=== PATIENT | female | born 1975 | race Caucasian/White ===

== ENCOUNTER 2020-03-31 20:58 | Inpatient (IN) | payer BC ==
[~2020-03-31 20:58] MED LIST: Iopamidol-370 76% 500 ML 1 ML ONE
[2020-03-31] MEDS ORDERED: Albuterol Sulfate 2.5 mg/0.5 ml Neb ONE (21:48)
[2020-03-31] MEDS ORDERED: Albuterol Sulfate 2.5 mg/3 ml Neb ONE (21:48)
--- NOTE | 2020-03-31 21:51 | RAD ---
PORTABLE CHEST: 03/31/20 PROVIDED CLINICAL HISTORY: Chest pain and shortness of breath. FINDINGS: Comparison 04/12/13. The cardiac and mediastinal silhouette is within normal limits. Patchy bilateral air space disease is demonstrated. No pleural fluid or pneumothorax apparent. IMPRESSION: Patchy bilateral air space disease, compatible with pneumonia in the appropriate clinical context. Pu lmonary edema could also be considered. POS: ALDA
[2020-03-31 21:55] LABS: #Lymphocytes 0.7 thou/uL (1.20-3.40); #Monocytes 0.2 thou/uL (0.11-0.59); #Neutrophils 2.7 thou/uL (1.40-6.50); %Basophils 0.2 % (0.0-1.0); %Eosinophils 0.4 % (0.0-10.0); %Lymphocytes 19.7 % (21.0-51.0); %Monocytes 6.6 % (0.0-10.0); %Neutrophils 73.1 % (42.0-75.0); Mean Corpuscular HGB CONC 33.3 g/dL (32.0-36.0); Mean Corpuscular Hemoglobin 29.8 pg (27.0-31.0); Mean Corpuscular Volume 89.5 fL (78.0-98.0); Mean Platelet Volume 7.8 fL (7.4-10.4); Platelet Count 178 thou/uL (130-400); RBC Distribution Width 11.6 % (11.5-14.5); White Blood Cell (WBC) Count 3.7 thou/uL (4.8-10.8)
[2020-03-31] MEDS ORDERED: Ondansetron PF 4 MG/2 ML Vial ONE (22:00)
[2020-03-31] MEDS ORDERED: Dexamethasone 10 MG/ML VIAL ONE (22:00)
[2020-03-31 22:15] LABS: ALT (SGPT) 22 U/L (8-55); AST (SGOT) 24 U/L (5-34); Alkaline Phosphatase 46 U/L (40-110); Anion Gap 17 mmol/L (10-20); BUN (Urea Nitrogen) 16 mg/dL (7.0-18.7); Bilirubin, Total 0.5 mg/dL (0.2-1.2); Calc. Creatinine Clearance 0 mL/min (70-130); Calcium 9.2 mg/dL (7.8-10.44); Carbon Dioxide 22 mmol/L (22-29); Chloride 104 mmol/L (98-107); Estimated GFR-MDRD 73; Globulin 3.1 g/dL (2.4-3.5); Glucose 135 mg/dL (70-105); Magnesium 1.7 mg/dL (1.6-2.6); Potassium 3.9 mmol/L (3.5-5.1); Protein, Total 7.1 g/dL (6.0-8.3); Sodium 139 mmol/L (136-145)
[2020-03-31] MEDS ORDERED: cefTRIAXone\\ROCEPHIN 2 GM VIAL ONE (23:12)
[2020-03-31 23:53] LABS: Bacteria/HPF None Seen HPF (None Seen); Bilirubin Negative (Negative); Blood, Urine Negative (Negative); Clarity Turbid (Clear); Glucose, Urine (Dipstick) Normal (Negative); Ketone, Urine Negative (Negative); Leukocyte 25 Leu/uL (Negative); Nitrite Negative (Negative); Protein, Urine (Dipstick) 70 mg/dL (Neg-Trace); RBC/HPF 0-3 HPF (0-3); Specific Gravity, Urine 1.031 (1.002-1.036); Squamous Epithelial 0-3 HPF (0-3); Urobilinogen Normal mg/dL (Less than 2); pH, Urine 5.5 (5.0-9.0)
[2020-04-01] MEDS ORDERED: Azithromycin 500 MG VIAL ONE (00:22)
[2020-04-01 02:51] VITALS: BMI 41.5
[2020-04-01] MEDS: Lactated Ringer's 1,000 ML IV SCH ×2 (03:33→08:18)
[2020-04-01] MEDS: Albuterol 200 PUFF (6.7GM INHALER) INH SCH ×2 (05:13→08:17)
--- NOTE | 2020-04-01 07:29 | CT ---
PRELIMINARY REPORT/[facility]/EMERGENCY AFTER HOURS PROCEDURE EXAM: CTA Chest with Intravenous Contrast CLINICAL HISTORY: 44-year-old female presenting for worsening shortness of breath with several episodes of hypoxia at h ome with the lowest episode of hypoxia being 65% on room air. COVID + TECHNIQUE: Axial CTA images of the chest with intravenous contrast. Three-dimensional MIP/volume rendered reform ations were performed. CONTRAST: With; ISOVUE 370,100mL COMPARISON: None provided. FINDINGS: PULMONARY ARTERIES There is no intraluminal filling defect suspicious for PE. AORTA No thoracic aortic aneurysm or dissection. LUNGS Scattered alveolar and nodular infiltrates identified throughout both lungs, this is mainly concentra kelly in the lower lungs. The central airway is patent. PLEURAL SPACES No pleural effusion. No pneumothorax. HEART AND MEDIASTINUM No cardiomegaly. No significant pericardial effusion. LYMPH NODES No lymphadenopathy. BONES No focal osseous abnormality or acute fracture. CHEST WALL AND UPPER ABDOMEN Images through the upper abdomen are unremarkable. The chest wall is unremarkable. IMPRESSION: There is no evidence of pulmonary arterial emboli. There are scattered alveolar nodular infiltrates identified in both lungs. These infiltrates are con centrated in the lower lungs. ELECTRONICALLY SIGNED BY: Anan Hernandez DO Apr 01, 2020 12:37:24 AM HAT [employer] This report is intended for review by the ordering physician only, in accordance of law. If you recei ve this report in error, please call [facility] at [phone]. FINAL REPORT Final interpretation CT angiogram chest: 04/01/2020 COMPARISON: None. HISTORY: Shortness of breath, hypoxia. FINDINGS: Suboptimal opacification of the pulmonary arterial branches distally, especially in the lung bases. L imited assessment for pulmonary arterial embolism demonstrates no central pulmonary arterial filling defect. Limited assessment of the upper abdomen demonstrates no acute findings. No pleural, p ericardial, or mediastinal fluid. No lymphadenopathy seen in the chest. There is a sliding-type hiatal hernia. No pneumothorax is seen. Extensive multifocal interstitial/groundglass alveolar opacities are noted within bilateral upper lob es, right greater than left, as well as throughout bilateral lower lobes, right greater than left. Review of the osseous structures demonstrates no worrisome lytic or blastic bone lesion. IMPRESSION: Limited assessment for pulmonary arterial embolism demonstrates no evidence for a central pulmonary a rterial embolism. Extensive multifocal interstitial and alveolar/ground glass opacity, right greater than left, suspici ous for atypical infectious pneumonitis, such as COVID-19. Code QA Transcribed Date/Time: 04/01/2020 8:17 AM
[2020-04-01] MEDS ORDERED: Enoxaparin Sodium 120 MG/0.8 ML SYRINGE SC SCH (09:00)
[2020-04-01] MEDS ORDERED: cefTRIAXone\\ROCEPHIN 1 GM in Sodium Chloride 0.9% 100 ML IVPB SCH (11:00)
[2020-04-01] MEDS ORDERED: ELETRIPTAN 40 MG PO PRN (12:40)
[2020-04-01] MEDS ORDERED: Ondansetron PF 4 MG/2 ML Vial IVP PRN (12:41)
[2020-04-01] MEDS ORDERED: Dexamethasone 4 MG TAB PO SCH (12:45)
--- NOTE | 2020-04-01 13:18 | HP ---
CHIEF COMPLAINT ON ADMISSION: Shortness of breath with COVID pneumonia and hypoxia. HISTORY OF PRESENT ILLNESS: The patient is a 44-year-old female who first came down with a diagnosis of positive COVID-19 on 03/24/20. She contacted Dr. Fuchs' office the following Friday, was placed on hydroxychloroquine, zinc, and had noted that since that time she was having worsening shortness of breath with episodes of hypoxia in her home. 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 She had multiple episodes of coughing at which time would also desaturate. She denies any chest pain, but does have a history of hypertension, diabetes. She recently also had fever, abdominal pain, nausea and vomiting. Because of the worsening shortness of breath, she came to the emergency room and has put in the hospital because of the history of desaturations into the 60s. PAST MEDICAL HISTORY: Significant for wff-bqredoy-pdxsdykgq diabetes, GERD, hypertension, heart murmur, dyslipidemia, and general medical noncompliance. PAST SURGICAL HISTORY: Only significant for wisdom teeth removal. PSYCHIATRIC HISTORY: Significant for depression. SOCIAL HISTORY: She works as an RN. Drinks socially. Denies illicit drug use or smoking. ALLERGIES: TO LATEX AND TOPAMAX. MEDICATIONS ON ADMISSION: Include 1. Trulicity weekly. 2. Pepcid 30 mg daily. 3. Metformin 1000 mg b.i.d. 4. Claritin 10 mg p.r.n. 5. Crestor 10 mg daily. 6. Fish oil. 7. Vitamin E. 8. Lisinopril 5 mg daily. 9. Recently Levaquin 500 mg daily. 10. Tessalon Perles 200 mg t.i.d. 11. Mucinex 1200 mg b.i.d. REVIEW OF SYSTEMS: CONSTITUTIONAL: General malaise and fever. HEENT: Denies drainage from eyes, ears, nose, or throat. No sores or lesions noted. CARDIOVASCULAR: Negative for chest pain or palpitations. RESPIRATORY: Significant for cough and general shortness of breath. GI: Significant for nausea and vomiting. GI: Negative for blood in urine or stool or dysuria. MUSCULOSKELETAL: Denies arthralgias or myalgias. NEUROLOGIC: Cranial nerves are intact. Mental status is clear. The patient is able to walk without difficulty. ENDOCRINE: Her blood sugars have actually been running low since she is on the Trulicity. Denies any new bruising or areas of swelling. PHYSICAL EXAMINATION: At the time of admission VITAL SIGNS: Blood pressure 84/56 with a pulse of 79, temperature of 101, pain at an 8/10 with an O2 saturation of 95% on room air. GENERAL: This is an obese female, alert, oriented, cooperative. HEENT: Normocephalic, atraumatic. Pupils are equal, round, and reactive to light. Extraocular muscles are intact. TMs, nares, and pharynx are clear. NECK: Supple. Trachea midline CHEST: With good breath sounds bilaterally. HEART: Regular rate and rhythm without murmur. ABDOMEN: Soft, nontender without hepatosplenomegaly. BREASTS: Exam deferred. EXTREMITIES: Without clubbing, cyanosis. 1+ edema in the lower extremities bilaterally. SKIN: Without new rashes or lesions. NEUROLOGIC: Cranial nerves are intact. Gait normal. Sensory exam is grossly intact. Mental status is clear. LABORATORY DATA: On admission showed WBCs at 3.7, hemoglobin 14, hematocrit 42.1 with platelets at 178. D-dimer at 0.43. Sodium 139, potassium 3.9, chloride 104, CO2 of 22, BUN 16, creatinine 0.84 with a GFR of 173. Glucose at that time was 133. Liver functions unremarkable. Protein intake is adequate. Troponins are negative and lactic acid is 1.4. The chest x-ray shows patchy bilateral infiltrates, considered to be clinical pneumonia versus pulmonary edema. CT of the chest revealed scattered alveolar and nodular infiltrates throughout both lungs, concentrated in the lower lobes. ASSESSMENT: 1. Bilateral pulmonary pneumonia, probably COVID. 2. Nce-hcglvlj-pyjlsauho diabetes. 3. Migraine headaches. PLAN: Plan will be continuation of current antibiotic and hydroxychloroquine along with zinc and vitamin D. Will also allow her to do Proventil inhalers q.4 as needed. Will prevent clotting with Lovenox. Continue her on her usual medications and serially re-evaluate her. Job ID: [id number]
[2020-04-01] MEDS: Benzonatate 100 MG CAP PO SCH ×2 (13:41→21:34)
[2020-04-01] MEDS: PROVENTIL INHALER 6.7 G (200 INHALATIONS) INH SCH ×2 (13:42→17:57)
[2020-04-01] MEDS ORDERED: ELETRIPTAN 40 MG PO SCH (16:30)
[2020-04-01] MEDS: Hydroxychloroquine Sulfate 200 MG TAB PO SCH (21:34)
[2020-04-02 05:49] LABS: #Lymphocytes 0.8 thou/uL (1.20-3.40); #Monocytes 0.2 thou/uL (0.11-0.59); #Neutrophils 5.8 thou/uL (1.40-6.50); %Eosinophils 0.1 % (0.0-10.0); %Monocytes 3.4 % (0.0-10.0); %Neutrophils 84.4 % (42.0-75.0); Hemoglobin 12.9 g/dL (12.0-16.0); Mean Corpuscular HGB CONC 33.9 g/dL (32.0-36.0); Mean Corpuscular Volume 91.3 fL (78.0-98.0); Mean Platelet Volume 7.5 fL (7.4-10.4); Platelet Count 217 thou/uL (130-400); RBC Distribution Width 11.5 % (11.5-14.5); Red Blood Cell (RBC) Count 4.17 mill/uL (4.20-5.40); White Blood Cell (WBC) Count 6.9 thou/uL (4.8-10.8)
[2020-04-02 06:02] LABS: Hemoglobin A1c 6.6 % (4.0-6.0)
[2020-04-02] MEDS: PROVENTIL INHALER 6.7 G (200 INHALATIONS) INH SCH ×4 (07:08→18:37)
[2020-04-02] MEDS ORDERED: TRULICITY PATIENT'S HOME MEDICATION SC SCH (09:00)
[2020-04-02] MEDS: Ergocalciferol 1.25 MG(50,000 UNITS) CAP PO SCH (09:44)
[2020-04-02] MEDS: Enoxaparin Sodium 40 MG/0.4 ML SYRINGE SC SCH (09:45)
[2020-04-02] MEDS: Dexamethasone 4 MG TAB PO SCH (09:45)
[2020-04-02] MEDS: Benzonatate 100 MG CAP PO SCH ×3 (09:45→20:59)
[2020-04-02] MEDS: Hydroxychloroquine Sulfate 200 MG TAB PO SCH ×2 (09:45→20:59)
[2020-04-02] MEDS: Zinc Sulfate 220 MG CAP PO SCH (09:46)
[2020-04-02] MEDS: Azithromycin 250 MG TAB PO SCH (09:46)
[2020-04-02] MEDS ORDERED: metFORMIN 500 MG TAB PO SCH (11:00)
[2020-04-02] MEDS ORDERED: ELETRIPTAN 40 MG PO SCH (11:15)
[2020-04-02] MEDS ORDERED: Acetaminophen 325 MG TAB PO SCH (11:15)
[2020-04-02] MEDS: cefTRIAXone\\ROCEPHIN 1 GM in Sodium Chloride 0.9% 100 ML IVPB SCH (11:42)
--- NOTE | 2020-04-02 13:08 | RAD ---
PORTABLE CHEST 1 VIEW: Date: 04/02/2020 Time: 1120 hours HISTORY: COVID pneumonia, hypoxia. COMPARISON: 03/31/2020. FINDINGS: The heart size is normal. Mild patchy bilateral air space disease is again seen. No pneumothoraces or pleural effusions are identified. IMPRESSION: Stable exam. POS: CÉSAR
[2020-04-02] MEDS: metFORMIN 500 MG TAB PO SCH (16:00)
[2020-04-03] MEDS: Acetaminophen 325 MG TAB PO PRN ×2 (04:44→19:12)
[2020-04-03 06:32] LABS: #Lymphocytes 0.8 thou/uL (1.20-3.40); #Monocytes 0.4 thou/uL (0.11-0.59); %Basophils 0.1 % (0.0-1.0); %Eosinophils 0.2 % (0.0-10.0); %Lymphocytes 10.3 % (21.0-51.0); %Monocytes 4.7 % (0.0-10.0); %Neutrophils 84.8 % (42.0-75.0); Hemoglobin 12.4 g/dL (12.0-16.0); Mean Corpuscular HGB CONC 32.4 g/dL (32.0-36.0); Mean Corpuscular Hemoglobin 29.5 pg (27.0-31.0); Mean Corpuscular Volume 90.9 fL (78.0-98.0); Mean Platelet Volume 7.6 fL (7.4-10.4); Platelet Count 316 thou/uL (130-400); RBC Distribution Width 11.6 % (11.5-14.5); Red Blood Cell (RBC) Count 4.22 mill/uL (4.20-5.40); White Blood Cell (WBC) Count 8.2 thou/uL (4.8-10.8)
[2020-04-03] MEDS: PROVENTIL INHALER 6.7 G (200 INHALATIONS) INH SCH ×4 (06:33→19:17)
[2020-04-03 06:50] LABS: Anion Gap 18 mmol/L (10-20); BUN (Urea Nitrogen) 9 mg/dL (7.0-18.7); Calc. Creatinine Clearance 190 mL/min (70-130); Calcium 9.2 mg/dL (7.8-10.44); Carbon Dioxide 23 mmol/L (22-29); Chloride 104 mmol/L (98-107); Estimated GFR-MDRD Greater than 90; Glucose 129 mg/dL (70-105); Potassium 3.7 mmol/L (3.5-5.1); Sodium 141 mmol/L (136-145)
[2020-04-03] MEDS: Fluticasone Propionate Nasal Spray 16 gm Bottle NASAL SCH ×2 (09:09→20:19)
[2020-04-03] MEDS: Hydroxychloroquine Sulfate 200 MG TAB PO SCH ×2 (09:11→20:17)
[2020-04-03] MEDS: Ergocalciferol 1.25 MG(50,000 UNITS) CAP PO SCH (09:11)
[2020-04-03] MEDS: Dexamethasone 4 MG TAB PO SCH (09:12)
[2020-04-03] MEDS: Benzonatate 100 MG CAP PO SCH ×3 (09:12→20:17)
[2020-04-03] MEDS: Azithromycin 250 MG TAB PO SCH (09:12)
[2020-04-03] MEDS: metFORMIN 500 MG TAB PO SCH ×2 (09:14→17:01)
[2020-04-03] MEDS: Zinc Sulfate 220 MG CAP PO SCH (09:14)
[2020-04-03] MEDS: Enoxaparin Sodium 40 MG/0.4 ML SYRINGE SC SCH (11:58)
[2020-04-03] MEDS: cefTRIAXone\\ROCEPHIN 1 GM in Sodium Chloride 0.9% 100 ML IVPB SCH (11:58)
[2020-04-03] MEDS ORDERED: ELETRIPTAN 40 MG PO PRN (20:06)
[2020-04-03] MEDS ORDERED: ELETRIPTAN 40 MG PO SCH (20:15)
[2020-04-03] MEDS ORDERED: Metoclopramide HCl 10 MG/2 ML VIAL IVP SCH (20:15)
[2020-04-04 06:23] LABS: #Monocytes 0.4 thou/uL (0.11-0.59); #Neutrophils 6.6 thou/uL (1.40-6.50); %Basophils 0.5 % (0.0-1.0); %Eosinophils 0.1 % (0.0-10.0); %Lymphocytes 12.5 % (21.0-51.0); %Neutrophils 81.9 % (42.0-75.0); Hemoglobin 13.1 g/dL (12.0-16.0); Mean Corpuscular HGB CONC 32.7 g/dL (32.0-36.0); Mean Corpuscular Hemoglobin 30.2 pg (27.0-31.0); Mean Corpuscular Volume 92.4 fL (78.0-98.0); Mean Platelet Volume 7.8 fL (7.4-10.4); Platelet Count 311 thou/uL (130-400); RBC Distribution Width 11.6 % (11.5-14.5); Red Blood Cell (RBC) Count 4.33 mill/uL (4.20-5.40); White Blood Cell (WBC) Count 8.1 thou/uL (4.8-10.8)
[2020-04-04] MEDS: PROVENTIL INHALER 6.7 G (200 INHALATIONS) INH SCH ×4 (06:28→18:01)
[2020-04-04 06:50] LABS: Anion Gap 18 mmol/L (10-20); BUN (Urea Nitrogen) 10 mg/dL (7.0-18.7); Calc. Creatinine Clearance 187 mL/min (70-130); Calcium 8.7 mg/dL (7.8-10.44); Carbon Dioxide 19 mmol/L (22-29); Chloride 105 mmol/L (98-107); Estimated GFR-MDRD Greater than 90; Glucose 206 mg/dL (70-105); Potassium 3.9 mmol/L (3.5-5.1); Sodium 138 mmol/L (136-145)
[2020-04-04] MEDS: Cepastat Lozenges 1 LOZ PO PRN ×2 (06:50→23:30)
[2020-04-04] MEDS: Azithromycin 250 MG TAB PO SCH (09:30)
[2020-04-04] MEDS: Zinc Sulfate 220 MG CAP PO SCH (09:30)
[2020-04-04] MEDS: Benzonatate 100 MG CAP PO SCH ×3 (09:30→20:12)
[2020-04-04] MEDS: Hydroxychloroquine Sulfate 200 MG TAB PO SCH ×2 (09:30→20:13)
[2020-04-04] MEDS: metFORMIN 500 MG TAB PO SCH ×2 (09:31→18:00)
[2020-04-04] MEDS: Ergocalciferol 1.25 MG(50,000 UNITS) CAP PO SCH (09:32)
[2020-04-04] MEDS: Dexamethasone 4 MG TAB PO SCH (09:32)
[2020-04-04] MEDS: Fluticasone Propionate Nasal Spray 16 gm Bottle NASAL SCH ×2 (09:34→20:13)
[2020-04-04] MEDS: Enoxaparin Sodium 40 MG/0.4 ML SYRINGE SC SCH (09:35)
[2020-04-04] MEDS: cefTRIAXone\\ROCEPHIN 1 GM in Sodium Chloride 0.9% 100 ML IVPB SCH (12:05)
[2020-04-04] MEDS ORDERED: Metoclopramide HCl 10 MG/2 ML VIAL IVP PRN (14:00)
--- NOTE | 2020-04-04 15:54 | RAD ---
EXAM: Chest PA and lateral: HISTORY: COVID pneumonia COMPARISON: 04/02/2020, 03/31/2020 FINDINGS: Heart: Normal cardiac silhouette Aorta: Unremarkable Pulmonary vessels: Normal Costophrenic angles: Costophrenic angles are clear. Lungs: Worsening multifocal interstitial and alveolar opacities. Pneumothorax: No pneumothorax Osseous structures: No osseous abnormalities IMPRESSION: Worsening multi lobar COVID pneumonia.
[2020-04-04] MEDS ORDERED: PREVACID 30 MG PO SCH (18:00)
[2020-04-05] MEDS: Acetaminophen 325 MG TAB PO PRN (01:50)
[2020-04-05] MEDS: PROVENTIL INHALER 6.7 G (200 INHALATIONS) INH SCH ×4 (06:19→18:48)
[2020-04-05 07:00] LABS: #Basophils 0.1 thou/uL (0.0-0.2); #Lymphocytes 1.5 thou/uL (1.20-3.40); #Monocytes 0.7 thou/uL (0.11-0.59); #Neutrophils 5.3 thou/uL (1.40-6.50); %Basophils 0.7 % (0.0-1.0); %Eosinophils 0.5 % (0.0-10.0); %Lymphocytes 20.1 % (21.0-51.0); %Monocytes 8.6 % (0.0-10.0); Hemoglobin 13.5 g/dL (12.0-16.0); Mean Corpuscular HGB CONC 33.3 g/dL (32.0-36.0); Mean Corpuscular Hemoglobin 30.4 pg (27.0-31.0); Mean Corpuscular Volume 91.3 fL (78.0-98.0); Mean Platelet Volume 7.1 fL (7.4-10.4); Platelet Count 391 thou/uL (130-400); RBC Distribution Width 11.5 % (11.5-14.5); Red Blood Cell (RBC) Count 4.43 mill/uL (4.20-5.40); White Blood Cell (WBC) Count 7.5 thou/uL (4.8-10.8)
[2020-04-05 07:17] LABS: Anion Gap 16 mmol/L (10-20); BUN (Urea Nitrogen) 13 mg/dL (7.0-18.7); Calc. Creatinine Clearance 176 mL/min (70-130); Calcium 9.3 mg/dL (7.8-10.44); Carbon Dioxide 26 mmol/L (22-29); Chloride 102 mmol/L (98-107); Estimated GFR-MDRD 90; Glucose 141 mg/dL (70-105); Potassium 3.9 mmol/L (3.5-5.1); Sodium 140 mmol/L (136-145)
[2020-04-05] MEDS ORDERED: Acetaminophen/Codeine 30-300mg Tablet PO PRN (08:32)
[2020-04-05] MEDS: Ergocalciferol 1.25 MG(50,000 UNITS) CAP PO SCH (10:01)
[2020-04-05] MEDS: Hydroxychloroquine Sulfate 200 MG TAB PO SCH ×2 (10:01→20:43)
[2020-04-05] MEDS: Dexamethasone 4 MG TAB PO SCH (10:01)
[2020-04-05] MEDS: Azithromycin 250 MG TAB PO SCH (10:02)
[2020-04-05] MEDS: PREVACID 30 MG PO SCH (10:02)
[2020-04-05] MEDS: Zinc Sulfate 220 MG CAP PO SCH (10:02)
[2020-04-05] MEDS: metFORMIN 500 MG TAB PO SCH ×2 (10:02→16:16)
[2020-04-05] MEDS: Fluticasone Propionate Nasal Spray 16 gm Bottle NASAL SCH ×2 (10:03→20:43)
[2020-04-05] MEDS: Enoxaparin Sodium 40 MG/0.4 ML SYRINGE SC SCH (10:03)
[2020-04-05] MEDS: cefTRIAXone\\ROCEPHIN 1 GM in Sodium Chloride 0.9% 100 ML IVPB SCH (10:07)
[2020-04-05] MEDS: Cyclobenzaprine 10 MG TAB PO SCH ×2 (10:07→16:16)
--- NOTE | 2020-04-05 11:58 | PQF ---
CLINICAL DOCUMENTATION CLARIFICATION FORM: Dear Dr. ALVAREZ Date: 04/05/2020 [id number] Please exercise your independent, professional judgment in responding to the clarification form. Clinical indicators are provided on the bottom of this form for your review. Please check appropriate box(es): [ x ] Acute Respiratory Failure: [ x ] with Hypoxia [ ] with Hypercapnia [ ] Acute On Chronic Respiratory Failure: [ ] with Hypoxia [ ] with Hypercapnia [ x ] Acute Respiratory Failure due to: (etiology) _Covid pneumonia [ ] Chronic Respiratory Failure only [ ] with Hypoxia [ ] with Hypercapnia [ ] Hypoxia [ ] Other diagnosis [ ] Unable to determine In addition, please specify: Present on Admission (POA): [ x ] Yes [ ] No [ ] Unable to determine For continuity of documentation, please document condition throughout progress notes and discharge summary. Thank You. To be completed by CDI/Coding staff for physician review: CLINICAL INDICATORS - SIGNS / SYMPTOMS / LABS / RESULTS AND LOCATION IN MR Tested positive for Covid on Friday, has a pulse ox at home, says Sats were in 60s on RA// Resp 23, Temp 101, presents for worsening SOB with several episodes of hypoxia. Final DX: SOB, Covid PNA, Hypoxia ( ED Report) 04/01 Episodes of hypoxia in her home, noted it to get down to 65% on room air and that she would wake up short of breath and choking. She had multiple episodes of coughing at which time would also desaturate. ( H&P/ Jef) 04/01 RISK FACTORS / RESULTS AND LOCATION IN MR DX : Covid Pneumonia ( H&P/ Jef) 04/01 TREATMENTS / RESULTS AND LOCATION IN MR Supplemental oxygen (04/01 present) Acute Respiratory Failure: ABG pH < 7.35 or > 7.45; Decreased oxygen saturation (<90% room air or < 95% on oxygen); PCO2 > 50 mm Hg; PO2 < 60 mm Hg; Labored or rapid respirations ARDS: Dx Criteria [[place] ARDS]: Respiratory symptoms within one week of a known clinical insult (e.g. shock, infection, surgery, trauma) Bilateral opacities in CXR/Chest CT not due to CHF or fluid THANK YOU! CDS Signature: Gracia Gimenez RN Phone #: [phone] Date: 04/05/2020 This is a permanent part of the Medical Record BILL
--- NOTE | 2020-04-05 13:22 | CON ---
DATE OF CONSULTATION: 04/05/2020 CONSULTING PHYSICIAN: Celio Fuchs MD REASON FOR CONSULTATION: Does the patient need convalescent plasma for COVID pneumonia. HISTORY OF PRESENT ILLNESS: This patient is a pleasant 44-year-old female, who was diagnosed with COVID pneumonia by test obtained on 03/25/2020. She is a nurse, who works over at rehab. Her symptoms consist of shortness of breath, muscle pains, fever, dry cough. Symptoms have been getting better except for the fact that she is still requiring oxygen. She is now at least 10 to 12 days into her illness. She has been treated appropriately with steroids, anticoagulation, and oxygen. PAST MEDICAL HISTORY: 1. She has type 2 diabetes mellitus, which is controlled. 2. Gastroesophageal reflux. 3. Hypertension. 4. Hyperlipidemia. PAST SURGICAL HISTORY: [place] tooth removal. SOCIAL HISTORY: Nonsmoker. Occasionally drinks alcohol. Does not use illicit drugs. ALLERGIES: LATEX AND TOPAMAX. MEDICATIONS: Prior to admission, these were reviewed. See summary section in chart. Inpatient medications, these were reviewed. See summary section in chart. REVIEW OF SYSTEMS: Remarkable for well listed in History of Present Illness. Otherwise, negative. PHYSICAL EXAMINATION: VITAL SIGNS: Temperature 98.3, pulse 58, respirations 20, O2 saturation 95% to 97% on 2 L, and blood pressure 133/79. The patient is 5 feet and 4 inches and is 242 pounds. HEENT: Unremarkable. NECK: No adenopathy, JVD, or thyromegaly. LUNGS: She has inspiratory crackles in both bases, which are soft. CARDIAC: S1 and S2, regular. ABDOMEN: Soft. EXTREMITIES: No clubbing, cyanosis, or edema. LABORATORY DATA: Sodium 140, potassium 3.9, chloride 102, CO2 of 26, BUN 13, creatinine 0.7, and glucose 141. Last D-dimer of 0.75. White blood cell count 7.5, hematocrit 40, and platelet count 391. ASSESSMENT: COVID-19 pneumonia - still with some subtle infiltrates on her x-ray, but overall does not have an overly severe case of the COVID pneumonia. This patient is at least 10 to 12 days into her illness and she will already be making her own antibiotics. She would not benefit from convalescent plasma or remdesivir. RECOMMENDATIONS: I would not recommend using convalescent plasma in this patient. She is probably stable for discharge on home O2, but will likely need home O2 for a couple of weeks while she is convalescing. I would taper her steroids slowly over 2 to 3 weeks. She does not need any more antibiotic therapy at this point. Job ID: [id number]
[2020-04-05] MEDS ORDERED: tiZANidine HCl 4 MG TAB PO SCH (21:00)
[2020-04-06] MEDS: Cepastat Lozenges 1 LOZ PO PRN ×2 (04:20→12:47)
[2020-04-06 05:27] LABS: #Lymphocytes 1.3 thou/uL (1.20-3.40); #Monocytes 0.6 thou/uL (0.11-0.59); #Neutrophils 5.5 thou/uL (1.40-6.50); %Basophils 0.6 % (0.0-1.0); %Eosinophils 0.4 % (0.0-10.0); %Lymphocytes 17.6 % (21.0-51.0); %Monocytes 8.3 % (0.0-10.0); Hemoglobin 13.3 g/dL (12.0-16.0); Mean Corpuscular HGB CONC 33.1 g/dL (32.0-36.0); Mean Corpuscular Hemoglobin 30.3 pg (27.0-31.0); Mean Corpuscular Volume 91.6 fL (78.0-98.0); Platelet Count 464 thou/uL (130-400); RBC Distribution Width 11.4 % (11.5-14.5); Red Blood Cell (RBC) Count 4.37 mill/uL (4.20-5.40); White Blood Cell (WBC) Count 7.6 thou/uL (4.8-10.8)
[2020-04-06 05:38] LABS: Anion Gap 16 mmol/L (10-20); BUN (Urea Nitrogen) 13 mg/dL (7.0-18.7); Calc. Creatinine Clearance 193 mL/min (70-130); Calcium 9.2 mg/dL (7.8-10.44); Carbon Dioxide 26 mmol/L (22-29); Chloride 101 mmol/L (98-107); Estimated GFR-MDRD Greater than 90; Glucose 246 mg/dL (70-105); Potassium 3.9 mmol/L (3.5-5.1); Sodium 139 mmol/L (136-145)
[2020-04-06] MEDS: PROVENTIL INHALER 6.7 G (200 INHALATIONS) INH SCH ×3 (06:22→14:11)
[2020-04-06] MEDS: Cyclobenzaprine 10 MG TAB PO SCH ×2 (08:25→14:11)
[2020-04-06] MEDS: Azithromycin 250 MG TAB PO SCH (08:25)
[2020-04-06] MEDS: Dexamethasone 4 MG TAB PO SCH (08:25)
[2020-04-06] MEDS: Zinc Sulfate 220 MG CAP PO SCH (08:25)
[2020-04-06] MEDS: metFORMIN 500 MG TAB PO SCH (08:26)
[2020-04-06] MEDS: Fluticasone Propionate Nasal Spray 16 gm Bottle NASAL SCH (08:26)
[2020-04-06] MEDS: Enoxaparin Sodium 40 MG/0.4 ML SYRINGE SC SCH (08:26)
[2020-04-06] MEDS: PREVACID 30 MG PO SCH (08:27)
[2020-04-06] MEDS: Ergocalciferol 1.25 MG(50,000 UNITS) CAP PO SCH (09:24)
[2020-04-06] MEDS: Hydroxychloroquine Sulfate 200 MG TAB PO SCH (09:24)
[2020-04-06] MEDS: cefTRIAXone\\ROCEPHIN 1 GM in Sodium Chloride 0.9% 100 ML IVPB SCH (11:18)
[2020-04-06 15:52] VITALS: BP 132/84; TEMP 98.1
--- NOTE | 2020-04-08 11:28 | EKG ---
Test Reason : Blood Pressure : / mmHG Vent. Rate : 076 BPM Atrial Rate : 076 BPM P-R Int : 144 ms QRS Dur : 084 ms QT Int : 368 ms P-R-T Axes : 056 000 023 degrees QTc Int : 414 ms Normal sinus rhythm Possible Inferior infarct , age undetermined Cannot rule out Anterior infarct , age undetermined Abnormal ECG Confirmed by PATRICIA YODER ([id number]), video news editor CARMEN HENDRICKS ([id number]) on 04/08/2020 11:27:38 AM Referred By: Confirmed By:PATRICIA YODER
== END 2020-04-06 16:21 | disposition home or self-care (01) | DRG 177 ==
LOC: ERS 20:58 → 2SW 04-01 00:23 → OBSVTOIN 04-01 13:03 → T4-B 04-02 18:30
PROVIDERS: ADMIT Specialist; ATTEND Internal Medicine
PROC: 8E0ZXY6 Isolation (ICD-10-PCS; principal; 2020-04-01)
DX: U07.1 COVID-19 (principal); J12.89 Other viral pneumonia; J96.01 Acute respiratory failure with hypoxia; E78.00 Pure hypercholesterolemia, unspecified; F32.9 Major depressive disorder, single episode, unspecified; E11.9 Type 2 diabetes mellitus without complications; I10 Essential (primary) hypertension; K21.9 Gastro-esophageal reflux disease without esophagitis; E78.5 Hyperlipidemia, unspecified; G43.909 Migraine, unspecified, not intractable, without status migrainosus; Z91.19 Patient's noncompliance with other medical treatment and regimen; Z88.7 Allergy status to serum and vaccine; Z91.040 Latex allergy status; Z79.899 Other long term (current) drug therapy; Z79.84 Long term (current) use of oral hypoglycemic drugs
CPT/HCPCS: 36415; 36416; 71045; 71046; 71275; 80048; 80053; 81003; 81015; 82728; 83036; 83605; 83735; 84484; 85025; 85379; 87040; 87086; 93005; 94640; 94664; 94760; 96365; 96366; 96367; 96375; J0456; J0696; J1100; J1650; J2405; J2765; J3490; J7611; J8540; Q9967